=== PATIENT | male | born 1980 | race Caucasian/White ===

== ENCOUNTER 2018-03-05 01:14 | Emergency (ER) | payer MEDICAID ==
[2018-03-05 02:31] LABS: BASOPHIL % 0.5 % (0-2); PLATELET COUNT 232 x10^3mcL (130-400); RED CELL DISTRIBUTION WIDTH 14.3 % (11.5-14.5)
[2018-03-05 02:35] LABS: CALCIUM 8.5 mg/dL (8.5-10.1); CARBON DIOXIDE 25.5 mmol/L (21-32); CHLORIDE SERUM 101 mmol/L (98-107); GFR1 > 60 mL/min; GLUCOSE SERUM 161 mg/dL (74-106); POTASSIUM SERUM 3.1 mmol/L (3.5-5.1); SODIUM SERUM 142 mmol/L (136-145)
[2018-03-05 02:39] LABS: ALBUMIN 4.1 g/dL (3.4-5.0); ALKALINE PHOSPHATASE 83 U/L (46-116); ALT/SGPT 173 U/L (16-63); AST/SGOT 108 U/L (15-37); BILIRUBIN TOTAL 0.58 mg/dL (0.20-1.00); LIPASE 183 IU/L (73-393); TOTAL PROTEIN, SERUM 7.6 g/dL (6.4-8.2)
[2018-03-05 02:52] LABS: AMPHETAMINE QUAL UR NONE DETECTED (See below)
[2018-03-05 06:02] VITALS: BP 129/89
== END 2018-03-05 06:02 | disposition home or self-care (01) ==
LOC: ED 01:14
PROVIDERS: Emergency Medicine
DX: F10.129 Alcohol abuse with intoxication, unspecified (principal); E87.6 Hypokalemia; Y90.7 Blood alcohol level of 200-239 mg/100 ml
CPT/HCPCS: G0480; J2060; J7030

== ENCOUNTER 2018-04-10 12:03 | Emergency (ER) | payer MEDICAID ==
[~2018-04-10] VITALS: Ht 182.9 cm; Wt 95.8 kg
[2018-04-10 12:28] LABS: BASOPHIL % 0.8 % (0-2); PLATELET COUNT 249 x10^3mcL (130-400); RED CELL DISTRIBUTION WIDTH 14.2 % (11.5-14.5)
[2018-04-10 12:50] LABS: CALCIUM 8.4 mg/dL (8.5-10.1); CARBON DIOXIDE 30.9 mmol/L (21-32); CHLORIDE SERUM 105 mmol/L (98-107); CREATININE SERUM 0.9 mg/dL (0.7-1.3); GFR1 > 60 mL/min; GLUCOSE SERUM 108 mg/dL (74-106); POTASSIUM SERUM 3.2 mmol/L (3.5-5.1); SODIUM SERUM 148 mmol/L (136-145)
[2018-04-10 12:51] LABS: ALKALINE PHOSPHATASE 91 U/L (46-116); ALT/SGPT 166 U/L (16-63); AST/SGOT 142 U/L (15-37); BILIRUBIN TOTAL 0.45 mg/dL (0.20-1.00); TOTAL PROTEIN, SERUM 7.6 g/dL (6.4-8.2)
[2018-04-10 17:51] VITALS: BP 128/78
== END 2018-04-10 17:51 | disposition home or self-care (01) ==
LOC: ED 12:03
PROVIDERS: Emergency Medicine
DX: F10.129 Alcohol abuse with intoxication, unspecified (principal)
CPT/HCPCS: G0480; J2060; J3411; J3475; J3490; J7030; Q0092

== ENCOUNTER 2018-04-10 19:59 | Inpatient (IN) | payer MEDICAID ==
[~2018-04-10] VITALS: Ht 177.8 cm; Wt 95.7 kg
[2018-04-10 20:04] VITALS: Ht 177.8 cm; Wt 95.7 kg
[2018-04-10 20:41] LABS: CALCIUM 8.3 mg/dL (8.5-10.1); CARBON DIOXIDE 26.4 mmol/L (21-32); CHLORIDE SERUM 104 mmol/L (98-107); CREATININE SERUM 0.9 mg/dL (0.7-1.3); GFR1 > 60 mL/min; GLUCOSE SERUM 127 mg/dL (74-106); POTASSIUM SERUM 3.1 mmol/L (3.5-5.1); SODIUM SERUM 142 mmol/L (136-145)
[2018-04-10 20:42] LABS: BASOPHIL % 1.2 % (0-2); PLATELET COUNT 216 x10^3mcL (130-400); RED CELL DISTRIBUTION WIDTH 13.7 % (11.5-14.5)
[2018-04-10 20:45] LABS: ALKALINE PHOSPHATASE 76 U/L (46-116); ALT/SGPT 173 U/L (16-63); AMYLASE 40 U/L (25-115); AST/SGOT 119 U/L (15-37); BILIRUBIN TOTAL 0.6 mg/dL (0.20-1.00); LIPASE 162 IU/L (73-393); MAGNESIUM 2.1 mg/dL (1.8-2.4); TOTAL PROTEIN, SERUM 7.5 g/dL (6.4-8.2)
[2018-04-10 23:23] VITALS: BP 157/97
[2018-04-10 23:37] LABS: PHOSPHOROUS 3.4 mg/dL (2.5-4.9)
[2018-04-10 23:38] LABS: CHOLESTEROL/HDL RATIO 2.6
[2018-04-10 23:44] LABS: FREE T4 0.92 ng/dL (0.76-1.46); FREE THYROXINE INDEX 2.2 ug/dL (1.4-4.5); T4(THYROXINE) 6.5 ug/dL (4.7-13.3)
[2018-04-11 00:40] LABS: T3 TOTAL 1.47 ng/mL
[2018-04-11 01:01] LABS: microscopic required? NO
[2018-04-11 01:17] LABS: urine erythrocyte NEGATIVE (NEGATIVE)
[2018-04-11 01:27] LABS: AMPHETAMINE QUAL UR NONE DETECTED (See below)
[2018-04-11 01:30] VITALS: BP 161/91
[2018-04-11 06:05] VITALS: BP 144/90
[2018-04-11 06:12] LABS: BASOPHIL % 0.8 % (0-2); PLATELET COUNT 168 x10^3mcL (130-400); RED CELL DISTRIBUTION WIDTH 13.8 % (11.5-14.5)
[2018-04-11 06:24] LABS: CALCIUM 7.8 mg/dL (8.5-10.1); CARBON DIOXIDE 29.5 mmol/L (21-32); CHLORIDE SERUM 105 mmol/L (98-107); CREATININE SERUM 0.8 mg/dL (0.7-1.3); GFR1 > 60 mL/min; GLUCOSE SERUM 85 mg/dL (74-106); POTASSIUM SERUM 3.2 mmol/L (3.5-5.1); SODIUM SERUM 146 mmol/L (136-145)
[2018-04-11 10:05] VITALS: BP 146/95
[2018-04-11 13:19] VITALS: BP 147/91
[2018-04-11 17:00] VITALS: BP 158/99
[2018-04-11 22:30] VITALS: BP 168/112
[2018-04-12 00:20] VITALS: BP 161/110
[2018-04-12 04:55] VITALS: BP 142/91
[2018-04-12 06:31] VITALS: BP 121/78
[2018-04-12 08:09] VITALS: BP 136/83
[2018-04-12 09:19] LABS: BASOPHIL % 0.4 % (0-2); PLATELET COUNT 153 x10^3mcL (130-400); RED CELL DISTRIBUTION WIDTH 13.5 % (11.5-14.5)
[2018-04-12 09:52] LABS: CALCIUM 9.1 mg/dL (8.5-10.1); CARBON DIOXIDE 24.6 mmol/L (21-32); CHLORIDE SERUM 101 mmol/L (98-107); CREATININE SERUM 0.8 mg/dL (0.7-1.3); GFR1 > 60 mL/min; GLUCOSE SERUM 99 mg/dL (74-106); POTASSIUM SERUM 3.9 mmol/L (3.5-5.1); SODIUM SERUM 135 mmol/L (136-145)
[2018-04-12] MEDS ORDERED: LORAZEPAM1 MG PO (10:17)
[2018-04-12] MEDS ORDERED: ZOFRAN8 MG PO (10:18)
[2018-04-12] MEDS ORDERED: ZES10 PO (10:34)
[2018-04-12 12:06] VITALS: BP 148/99
== END 2018-04-12 16:37 | disposition home or self-care (01) | DRG 775 ==
LOC: ED 19:59 → DU 22:17
PROVIDERS: Emergency Medicine; Internal Medicine
DX: F10.239 Alcohol dependence with withdrawal, unspecified (principal); E78.5 Hyperlipidemia, unspecified; E87.6 Hypokalemia; F32.9 Major depressive disorder, single episode, unspecified; F43.10 Post-traumatic stress disorder, unspecified; Y90.9 Presence of alcohol in blood, level not specified; R74.0 Nonspecific elevation of levels of transaminase and lactic acid dehydrogenase [LDH]; Z68.28 Body mass index [BMI] 28.0-28.9, adult
CPT/HCPCS: 83880; 84439; G0480; J2060; J2405; J2765; J3411; J3475; J3480; J3490; J7030; J7042